=== PATIENT | female | born 1980 | race Caucasian/White ===

== ENCOUNTER → 2019-11-27 | Outpatient (CLI) | payer OTHER ==
--- NOTE | 2019-11-27 12:37 | Diagnostic Imaging Report ---
INDICATION: Pain status post injury COMPARISON: None. Findings: 3 radiographic views of the right hand were obtained. There is nondisplaced acute oblique oriented fracture extending through the 5th middle phalanx. There is no evidence of intra-articular extension. Joint spaces are intact. No other acute osseous abnormalities are seen. No unexpected radiopaque foreign bodies are seen. IMPRESSION: 1. Acute nondisplaced fracture of the 5th middle phalanx as described above. Dictated by: Dictated on workstation # [id number]
== END ==
LOC: RAD FS 10:00
DX: S62.622A Displaced fracture of middle phalanx of right middle finger, initial encounter for closed fracture (principal)
CPT/HCPCS: 73130

== ENCOUNTER → 2019-12-12 | Outpatient (CLI) | payer OTHER ==
--- NOTE | 2019-12-12 10:00 | Diagnostic Imaging Report ---
EXAMINATION: Right fifth finger radiographs, 3 views. COMPARISON: November 27, 2019. HISTORY: 39-year-old female, fracture followup. FINDINGS: There is a comminuted minimally displaced fracture involving the fifth middle phalanx with the fracture extending to the ulnar aspect of the articulating surface. There is no gross offset of the articulating surface. There is no cortical or aggressive bone destruction. There is no radiopaque foreign body. There is a persistent visualized fracture line with partial interval healing response. IMPRESSION: Partial interval healing response at site of fracture of the fifth middle phalanx with fracture extension to the ulnar margin of the articulating surface and no gross offset of the articulating surface. Dictated by: Dictated on workstation # [id number]
== END ==
LOC: RAD FS 08:49
PROVIDERS: ATTEND Nurse Practitioner
DX: S62.656D Nondisplaced fracture of middle phalanx of right little finger, subsequent encounter for fracture with routine healing (principal); X58.XXXD Exposure to other specified factors, subsequent encounter
CPT/HCPCS: 73140

== ENCOUNTER → 2020-01-02 | Outpatient (CLI) | payer OTHER ==
--- NOTE | 2020-01-02 12:19 | Diagnostic Imaging Report ---
INDICATION: Nondisplaced fracture, followup. TECHNIQUE: Single view hand with 3 views of the right little finger, 10:13 AM. CORRELATION STUDY: 12/12/2019. FINDINGS: The comminuted fracture at the mid to distal aspect of the middle phalanx of the little finger is again demonstrated. The fracture lines are still visualized with some fracture lines actually better visualized which may be owing to some bone resorption. Very slight dorsal displacement of a small fracture fragment is noted. No definitive bridging callus formation. The joint spaces appear fairly well-maintained. No new bony abnormality in the right hand. IMPRESSION: Very little (if any) interval healing of the middle phalangeal fracture of the little finger. Slight progressive outward and ulnar displacement of a major fracture fragment. Dictated by: Dictated on workstation # [id number]
== END ==
LOC: RAD FS 09:49
PROVIDERS: ATTEND Nurse Practitioner
DX: S62.656D Nondisplaced fracture of middle phalanx of right little finger, subsequent encounter for fracture with routine healing (principal)
CPT/HCPCS: 73140

== ENCOUNTER 2020-12-24 13:49 | Emergency (ER) | payer OTHER ==
[~2020-12-24] VITALS: Ht 170 cm; Wt 74.0 kg
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
[2020-12-24 16:13] VITALS: BP 142/76
[2020-12-24] MEDS ORDERED: IBUP-1780 PO (16:24)
[2020-12-24] MEDS ORDERED: BACL10TA PO (16:24)
[2020-12-24] MEDS ORDERED: ACHD5005 PO (16:24)
== END 2020-12-24 16:28 | disposition home or self-care (01) ==
LOC: EDUNIT# 13:49 → ER FS 13:51
DX: S13.4XXA Sprain of ligaments of cervical spine, initial encounter (principal); S29.012A Strain of muscle and tendon of back wall of thorax, initial encounter; S60.011A Contusion of right thumb without damage to nail, initial encounter; M25.512 Pain in left shoulder; V89.2XXA Person injured in unspecified motor-vehicle accident, traffic, initial encounter
CPT/HCPCS: 70450; 72125; 72128; 72131; 73030; 73110; 73130